=== PATIENT | female | born 1950 | race African-American/Black ===

== ENCOUNTER 2016-11-19 09:03 | Inpatient (IN) | payer MEDICARE ==
--- NOTE | ~2016-11-19 | CN ---
Consultation Report [facility] [address] [place]. [address] NAME: JENISE KHANNA : 50 STATUS : ADM IN PAT#: [id number] AGE: 66 ADM/REG DATE : 11/19/16 MR#: [id number] REPORT SERV DATE: 11/22/16 DICTATED BY: JOSHUA TRACY DATE: 11/19/16 REPORT STATUS : Draft TRANSCRIBED BY: MODL DATE: 11/19/16 CONSULTATION DATE OF CONSULTATION: 11/19/2016 REASON FOR CONSULTATION: Chronic kidney disease with admission for GI bleed. HISTORY OF PRESENT ILLNESS: A very pleasant 66-year-old, female patient, followed chronically in our office by Dr. Salvatore Jameson. She was recently seen in our office on 11/16/2016 with a creatinine at that point of 2.31 with a known baseline of 2.2 to 2.5. She has had recurrent difficulty with GI bleed and reports again to [facility] with a complaint of bright red blood per rectum. She has brought with her son who provides some level of assistance and care for her. Last available hemoglobin in our office on 11/16/2016 was at 10.4 and has dropped to 9.5 here. She is awake and alert, lying in bed during the evaluation this afternoon. Denies current chest pain. No nausea, vomiting, or diarrhea. PAST MEDICAL HISTORY: Positive for chronic kidney disease with baseline creatinine of 2.2 to 2.5, followed by Dr. Salvatore Jameson as listed above. Remainder of her history is positive for recurrent GI bleed, hypertension with previous ARB usage, rheumatoid arthritis on chronic steroids, history of paroxysmal atrial fibrillation without chronic anticoagulation with GI bleed, perforated GI ulcer with GI bleed since 04/2010, history of CVA with mild dysphagia, hyperlipidemia, [id number] diabetes mellitus with metformin usage, history of ventral hernia repairs in 10/2013, echocardiogram in 04/2010 showing EF of 65%, history also positive for small-bowel AVMs, chronic kidney disease, as well as acute blood loss, CVA x2 with continued antiplatelet therapy. REVIEW OF SYSTEMS: Review of systems is completed. Please see HPI for pertinent details. SOCIAL HISTORY: No ETOH. No illicit drugs. No tobacco. Lives here locally and does receive some level of care and assistance from her son, who is employed with the [employer]. ALLERGIES ON ENTRY: She lists no known allergies active. ACTIVE MEDICATIONS: Include amiodarone 200 mg p.o. daily, Norvasc 10 mg p.o. daily, Lipitor 20 mg p.o. q.h.s., Plavix 75 mg p.o. daily, vitamin B12 1000 mcg p.o. daily, Enbrel 25 mg subcu on Tuesdays, folic acid 1 mg daily, hydralazine 50 mg p.o. q.8, metoprolol 25 mg p.o. daily, Protonix 40 mg p.o. daily, Klor-Con 10 mEq p.o. b.i.d., prednisone 2.5 mg p.o. daily, and torsemide 10 mg p.o. daily. PHYSICAL EXAMINATION: VITAL SIGNS: Blood pressure at 146/78, temperature at 98.6, 96% on room air, and heart rate is 66 beats per minute and regular. Consultation Report [address] [place]. [address] NAME: JENISE KHANNA : 50 STATUS : ADM IN PAT#: [id number] AGE: 66 ADM/REG DATE : 11/19/16 MR#: [id number] REPORT SERV DATE: 11/22/16 DICTATED BY: JOSHUA TRACY DATE: 11/19/16 REPORT STATUS : Draft TRANSCRIBED BY: RADHA DATE: 11/19/16 GENERAL: She is awake, alert, oriented x3, in no acute distress. HEENT: Normocephalic, atraumatic. Normal ocular movement. No scleral icterus. No conjunctival pallor is appreciated. NECK: Supple. No thyromegaly. No JVD or mass. CHEST: Shows positive S1 and S2. No rubs or gallops. LUNGS: Diminished but clear to auscultation throughout. Normal expansion effort bilaterally. GASTROINTESTINAL: Shows positive bowel sounds in all four quadrants. No appreciable mass or tenderness. GENITOURINARY: Deferred. EXTREMITIES: Show positive pulses to all four extremities. No clubbing, cyanosis, or edema. NEUROLOGIC: She is grossly intact and nonfocal. She does have a previous deficits as noted from previous CVA with some level of expressive aphasia. She appears to be of appropriate mood and affect. SKIN: Warm, dry, and intact visualized surfaces. No rash, lesions, or ecchymosis. LABORATORY DATA: Pertinent laboratories and imaging to this evaluation. Last available H and H shows a hemoglobin of 9.0, hematocrit 28.3. Comprehensive metabolic panel; sodium 145, potassium 3.1, chloride 109, CO2 of 22, BUN 30, creatinine 2.63, reflected GFR at 21 mL/minute, glucose of 181. Calcium 8.4, total protein 7.6, albumin 3.0, globulin 4.6, alkaline phos 91, ALT and AST 21 and 27. Previous CBC: White blood cell count 6.7, RBC 3.32, hemoglobin 9.5, hematocrit 29.3, and platelets at 228. IMPRESSION AND PLAN: This is a chronic kidney disease stage 4. The patient's baseline creatinine is 2.2 to 2.5, followed by Dr. Salvatore nixon in our office with last creatinine at 2.31 on 11/16/2016, now reporting to [facility] with recurrence of probable gastrointestinal bleed with complaint of bright red blood per rectum. Creatinine is at 2.63 on entry which is just outside of her normal baseline. We will stop her torsemide, and I believe, she is going to be infused with IV fluids, certainly may receive packed red blood cells. The patient has been placed on serial H and H and will be infused per parameters provided by the hospitalist service. Her Eliquis has been stopped, and she will be evaluated by GI Services. Would avoid AYAKA inhibitors as well as ARBs given her current level of renal dysfunction. Defer to others involved in her care regarding re- initiation of antiplatelet therapy post completion of GI workup. Further modification of treatment plan may be made based on clinical presentation, patient laboratory results, further consultation with renal attending. Thank you for consultation. We are glad to follow. DICTATED BY: Erick Morales NP JR/RADHA Consultation Report [facility] [address] [place] [address] NAME: JENISE KHANNA : 50 STATUS : ADM IN [facility]#: [id number] AGE: 66 ADM/REG DATE : 11/19/16 MR#: [id number] REPORT SERV DATE: 11/22/16 DICTATED BY: JOSHUA TRACY DATE: 11/19/16 REPORT STATUS : Draft TRANSCRIBED BY: RADHA DATE: 11/19/16 Joshua Tracy M.D. / [id number] CC: MD Zohra Kim M.D.
--- NOTE | ~2016-11-19 | HP ---
History And Physical [facility] [address] [place]. [address] NAME: JENISE KHANNA : 50 STATUS : ADM IN PAT#: [id number] AGE: 66 ADM/REG DATE : 11/19/16 MR#: [id number] REPORT SERV DATE: 11/19/16 DICTATED BY: SUYAPA WOMACK DATE: 11/19/16 REPORT STATUS : Draft TRANSCRIBED BY: MODL DATE: 11/19/16 DATE OF ADMISSION: 11/19/2016 EXAMINING PHYSICIAN: Suyapa Womack M.D. REASON FOR ADMISSION: Lower GI bleeding. HISTORY OF PRESENT ILLNESS: This is a 66-year-old black female, who has had a known history of GI bleeding in the past. She had iron deficiency anemia, was given five infusions of iron ordered by Dr. Salvatore Jameson in the last year. She had AV malformation identified by Dr. Dominguez Crowley, and was sent to [facility] for evaluation. She was seen at [facility] and had identification of the AVM, but no intervention was undertaken. This is the first GI bleed since she was seen at [facility] in 2014. She has recently begun walking again after her strokes. She has been rehabilitated at [facility] and [facility] both, and had spent some time in the fpc. She did walk with a walker around a drug store with her shopping that was an unusual activity for her; however, she does not have any hemorrhoids or other problems with that. She noticed bright red blood per rectum. She continues to take her Plavix because of her previous stroke. She has some residual dysarthria from previous strokes, but otherwise was able to give history. says she does have some expressive aphasia. She was examined in the emergency room by Dr. Tanmay Olivo, and now is admitted for GI bleeding to monitor serial hemoglobin and hematocrit transfuse if necessary, and consider endoscopy. Dr. Crowley, her travelers' aid worker is being consulted. Her primary care physician had been Dr. Zohra Rollins in [place]. PAST MEDICAL HISTORY: She has had two strokes in the past with some residual dysarthria. She has recovered, for the most part, to be able to walk. She does not have weakness that lateralizes at this time she says. She has a history of gallbladder surgery, Dr. Michael Doll. History of diverticulitis surgery, Dr. Michael Doll did as well. She did have a bowel obstruction in October 2013. Ventral hernia was repaired. Her creatinine has been elevated, though she still takes metformin by her 's report, she uses it in a p.r.n. fashion. HOME MEDICATIONS: Include the following: Amiodarone 200 mg p.o. daily, amlodipine 10 mg p.o. daily, atorvastatin 20 mg p.o. at bedtime, Plavix 75 mg p.o. daily, vitamin B12 a 1000 mcg p.o. daily, Enbrel injection 25 mg subcu on Tuesdays, folic acid 1 mg p.o. daily, hydralazine 50 mg p.o. q.8 hours, metoprolol tartrate 25 mg p.o. daily, Protonix 40 mg p.o. daily, potassium chloride 10 mEq p.o. b.i.d., prednisone 2.5 mg p.o. daily, and torsemide 10 mg p.o. daily. ALLERGIES: NONE ARE KNOWN. SOCIAL HISTORY: She is . Lives with her . She has been since 1970. History And Physical [address] [address] NAME: JENISE KHANNA : 50 STATUS : ADM IN [facility]#: [id number] AGE: 66 ADM/REG DATE : 11/19/16 MR#: [id number] REPORT SERV DATE: 11/19/16 DICTATED BY: SUYAPA WOMACK DATE: 11/19/16 REPORT STATUS : Draft TRANSCRIBED BY: RADHA DATE: 11/19/16 has retired from the [employer]. 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 She lives in [facility] and goes to [facility] where her and his family have been members for three to four generations. She has two sons who are alive and well. Younger son is 6 feet 4 inches and weighs 390 pounds. FAMILY HISTORY: She had four brothers, one sister. Sister of cancer. Mother of cancer. Father of unknown causes. REVIEW OF SYSTEMS: She denies any chest pain. No anal pain. No abdominal pain. No melena. No hematemesis. She has only has bright red blood hematochezia. She has had no hematuria. No fever, chills, night sweats, chest pain, shortness of breath, fits, seizures, convulsions, unilateral weakness, nausea, vomiting, or diarrhea. The remainder of the review of systems is negative. PHYSICAL EXAMINATION: GENERAL: Lightly complected black female, in no acute distress. VITAL SIGNS: Blood pressure initially was 134/77, heart rate of 73, respiratory rate 18, afebrile. HEENT: EOMI. Sclerae clear. Conjunctivae pink. NECK: No bruit without any JVD. CHEST: Clear to A and P. HEART: Regular S1, S2 without murmur, gallop, or click. ABDOMEN: Grossly obese. Nontender. Bowel sounds are positive. No HSM. EXTREMITIES: Have 2+ pitting edema at the shins bilaterally. Distal pulses are palpable dorsalis pedis and posterior tibial, and equally. NEUROLOGIC: She has hyperreflexia, the left knee jerk. Architectural Engineering Teacher is equal and symmetric bilaterally. Coordination appears to be intact. She has no tremor. She is dysarthric. Speech is not smooth. Sensory is symmetric and equal neurologically bilaterally. SKIN: Without rash, ecchymosis, or bruising. LYMPHATICS: There is no adenopathy palpable. PSYCHIATRIC: She is oriented to person, place, and time. Her speech is limited, though appears to be goal directed and appropriate. LABORATORY: Type and screen for O positive blood. Her creatinine is 2.63,with a potassium of 3.1, sodium 145. Her CO2 was 22, glucose 181, calcium 8.4, protein 7.6, and albumin 3.0. Liver tests were normal. Hemoglobin 9.5, hematocrit 29.3, platelet count 228, and white count was 6.7. Her INR is 1.2. ASSESSMENT: 1. Lower gastrointestinal bleeding. Bright red blood per rectum. Her main problem before History And Physical [address] [place]. [address] NAME: JENISE KHANNA : 50 STATUS : ADM IN [facility]#: [id number] AGE: 66 ADM/REG DATE : 11/19/16 MR#: [id number] REPORT SERV DATE: 11/19/16 DICTATED BY: SUYAPA WOMACK. DATE: 11/19/16 REPORT STATUS : Draft TRANSCRIBED BY: MODL DATE: 11/19/16 had been AV malformations of the small intestines. She was seen at [facility] by Dr. Leal, but no intervention was undertaken. This is back in 2014. This is the first gastrointestinal bleed since 2014 that she has had. She is on Plavix and needs that because of her recurrence of strokes. 2. Chronic kidney disease. Stage IV with an estimated creatinine clearance of about 20 mL a minute. 3. Anemia, has been chronic. She has gotten her iron deficiency corrected with IV iron by Dr. Jameson recently. Present MCV is 88. 4. Dysarthria from previous strokes. 5. Left hyperreflexia without weakness on the left side indicating residual from previous stroke. 6. Hypertension. 7. Diabetes type 2. Her still relates that she is taking metformin intermittently at home in spite of the elevated creatinine. We will inform Dr. Salvatore Jameson and Dr. Rollins. 8. Rheumatoid arthritis. Seen by Dr. Isaura Garcia. 9. History of cerebrovascular accident in 2008 with some residual requiring her to retire at that time. 10.History of bleeding from AV malformations of the small intestine with melena on previous admissions. PLAN: We will consult Dr. Crowely for consideration for endoscopies. This the first bleeding problem she has had since 2014. We will follow serial hemoglobin and hematocrit evaluations, transfuse if needed. DB/MODL Suyapa Womack M.D. / [id number] CC: MD Zohra Kim M.D. Robert Barnett III, M.D. Nathan Chamberlain, M.D. Matthew Bagamery, M.D. Isaura Garcia M.D.
--- NOTE | ~2016-11-19 | IDS ---
Interim Discharge Summary [facility] [address] [place]. [address] NAME: JENISE KHANNA : 50 STATUS : ADM IN PAT#: [id number] AGE: 66 ADM/REG DATE : 11/19/16 MR#: [id number] REPORT SERV DATE: 11/25/16 DICTATED BY: DATE: REPORT STATUS : Draft TRANSCRIBED BY: MODL DATE: 11/24/16 ADMISSION DATE: 11/19/2016 DISCHARGE DATE: ATTENDING PHYSICIANS: Dr. Dario Nieto and Dr. Vishnu Liu. CONSULTANTS: Have included Dr. Dominguez Crowley of Gastroenterology and Mackenzie Wong, of Nephrology - now signed off. CURRENT DIAGNOSES: 1. Acute blood loss anemia - status post 5 units of packed red blood cells this admission, with 1 unit given on each of 11/20/2016, 11/21/2016, 11/22/2016, 11/23/2016, and 11/24/2016. 2. Lower GI bleed-diverticular per tagged red blood cell scan on 11/22/2016. 3. Melena - suspect evacuation of old bleed and not new bleeding. Tagged red blood cell scan on 11/23/2016 negative. 4. History of GI AV malformations - on PPI and Sandostatin currently. 5. History of past cerebrovascular accidents - on outpatient Plavix - held currently. 6. Hypertension - controlled. 7. Hyperlipidemia. 8. History of paroxysmal atrial fibrillation. 9. Rheumatoid arthritis on disease modifying therapies. 10.Chronic kidney disease, stage 3-4 - stable with baseline creatinine between 2.3 and 2.6. IMAGING AND DIAGNOSTICS: Include: 1. Tagged red blood cell scan on 11/22/2016 showing active GI bleeding involving the left colon, likely originating near the splenic flexure. 2. Tagged red blood cell scan 11/23/2016 showing no scintigraphic evidence of active GI bleeding at this time. PERTINENT LABS: Hemoglobin values ranging from 7 to 8.4, normal white count, normal platelets, normal INR. Creatinine values ranging from 2.3 to 2.6, normal liver enzymes. BRIEF HISTORY: For full details, please see the previously dictated history of present illness by Emiliano Fatima. This is a 66-year-old female with known history of GI AVMs, previously evaluated and treated at [facility] in 2014. The patient had not been experiencing any GI bleeding since then, but had been treated with IV iron infusions for iron deficiency anemia. She presented to the [facility] Emergency Department with complaint of bright red blood per rectum with drop in hemoglobin from previously known value of 10.4 to as low as 7.1. The patient denied any nausea, vomiting, hematemesis, abdominal pain, diarrhea, or recent melena. She was admitted to the Hospitalist Service for evidence of active blood loss. HOSPITAL COURSE: The patient was admitted on 11/19/2016, placed on IV fluids, with serial hemoglobin and hematocrit values obtained. Her hemoglobin declined overnight on 11/19/2016, Interim Discharge Summary [facility] [address] [place]. [address] NAME: JENISE KHANNA : 50 STATUS : ADM IN [facility]#: [id number] AGE: 66 ADM/REG DATE : 11/19/16 MR#: [id number] REPORT SERV DATE: 11/25/16 DICTATED BY: DATE: REPORT STATUS : Draft TRANSCRIBED BY: MODL DATE: 11/24/16 and she required her first unit of packed red blood cells on 11/20/2016. Her Plavix was held at admission, Dr. Crowley was consulted, and recommended IV Sandostatin for possible diverticular bleed versus AV malformations. The patient continued to experience melena and decline in hemoglobin on 11/21/2016 with four bloody bowel movements. Gastroenterology recommended tagged red blood cell scan be performed, and this was done on 11/22/2016, suggestive of a diverticular bleed. Return Clerk was consulted in the event that arteriogram was planned, but the patient ended up declining this procedure. The patient was managed symptomatically on the afternoon of 11/22/2016, and was doing well until early on the morning of 11/23/2016 when she developed another four episodes of melena. She was hemodynamically stable but did demonstrate decline in hemoglobin from 8.4 to 7.5 and was transfused additional packed red blood cells. Since the morning of 11/23/2016, her melena has slowed significantly. A repeat tagged red blood cell scan done on the afternoon of 11/23/2016 did not demonstrate any active bleeding, thus her ongoing melena is felt to be evacuation of prior blood. Gastroenterology recommended decreasing her Sandostatin and continuing serial hemoglobin and hematocrit values with transfusions for any hemoglobin less than 7.5, thus she received an additional unit of packed red blood cells on 11/24/2016 for a hemoglobin of 7.4. Her Plavix remains on hold. This has been discussed with Neurology who said there is no other reasonable stroke prophylaxis at present. It needs to be discussed further with Gastroenterology and the patient whether the risk of being on Plavix exceeds the benefit, or vice versa. The patient's other chronic medical problems including rheumatoid arthritis, hypertension, hyperlipidemia, history of atrial fibrillation, chronic kidney disease have all been stable this admission without any changes in home medications with the exception of Demadex, which was initially held at admission, but restarted on 11/24/2016 when it was clear that creatinine was at baseline and no contrast dye is planned. Plavix is on hold as mentioned above. DISPOSITION: The patient remains hospitalized, to be followed by a colleague starting tomorrow. Would anticipate discharge within the next 24 to 48 hours, when hemoglobin has been stable for more than 24 hours with no evidence of recurrent melena. Again, discussions about re-initiation of Plavix, and the appropriate time frame for such will need to occur as well. CONCHITA/RADHA Vishnu Liu M.D. Interim Discharge Summary [address] [address] NAME: JENISE KHANNA : 50 STATUS : ADM IN [facility]#: [id number] AGE: 66 ADM/REG DATE : 11/19/16 MR#: [id number] REPORT SERV DATE: 11/25/16 DICTATED BY: DATE: REPORT STATUS : Draft TRANSCRIBED BY: MODL DATE: 11/24/16 / [id number] CC: Raiza Abraham M.D. Matthew Bagamery, M.D.
--- NOTE | ~2016-11-19 | DS ---
Discharge Summary [facility] [address] [place]. [address] NAME: JENISE KHANNA : 50 STATUS : DIS IN PAT#: [id number] AGE: 66 ADM/REG DATE : 11/19/16 MR#: [id number] REPORT SERV DATE: 11/26/16 DICTATED BY: TAD JIMENEZ DATE: 11/25/16 REPORT STATUS : Draft TRANSCRIBED BY: MODL DATE: 11/25/16 ADMISSION DATE: 11/19/2016 DISCHARGE DATE: 11/25/2016 DISCHARGE DIAGNOSES: 1. Acute blood loss anemia, status post 5 units of packed red blood cells on this admission. Lower gastrointestinal bleed, most likely diverticular as per tagged red cell scan done on 11/22/2016, repeat scan negative. 2. Melena, suspect evacuation of all blood. 3. History of a GI arteriovenous malformations. On proton pump inhibitor. Was given Sandostatin during this hospitalization. 4. History of cerebrovascular accident. On outpatient Plavix, currently held until Tuesday after discharge. 5. Hypertension, controlled. 6. Hyperlipidemia, history of paroxysmal atrial fibrillation, currently on amiodarone with sinus rhythm. 7. Rheumatoid arthritis, currently on disease modifying therapy. 8. Chronic kidney disease stage 3 to 4 with creatinine back to baseline. CONSULTANTS DURING THIS HOSPITALIZATION: Dr. Dominguez Crowley of Gastroenterology. INVASIVE PROCEDURES DONE DURING THIS HOSPITALIZATION: None. IMAGING: Please refer to interim summary dictated by Dr. Vishnu Liu. BRIEF HISTORY OF PRESENT ILLNESS: The patient is a 66-year-old female, with known GI AVMs, presented with melena, iron-deficiency anemia, so she was admitted. For detailed history and physical exam, please see note dictated by Dr. Emiliano Fatima on 11/19/2016. HOSPITAL COURSE: After being admitted to the hospital, this patient was cared for by Dr. Dario Nieto and Dr. Vishnu Liu. Please refer to interim summary dictated by Dr. Liu on 11/24/2016. I took over this patient's care on 11/25/2016. This patient was doing relatively worse. She says her melena has resolved. She is tolerating a diet after Carline okayed her discharge and recommended she follow up in the outpatient setting. I have told her not to take her Plavix for about three to four days until she completely feels better and then resume in the outpatient setting. She remained stable, otherwise medically and is being discharged in stable condition. DISCHARGE DISPOSITION: Home. DISCHARGE ACTIVITY: As tolerated. DISCHARGE DIET: 1800-calorie [place] [employer] diet. DISCHARGE MEDICATIONS: Amlodipine 10 mg once daily, Lipitor 20 mg once daily, amiodarone 200 Discharge Summary [address] [address] NAME: JENISE KHANNA : 50 STATUS : DIS IN PAT#: [id number] AGE: 66 ADM/REG DATE : 11/19/16 MR#: [id number] REPORT SERV DATE: 11/26/16 DICTATED BY: TAD JIMENEZ DATE: 11/25/16 REPORT STATUS : Draft TRANSCRIBED BY: RADHA DATE: 11/25/16 mg once daily, vitamin B12 of 1000 mcg once daily, folic acid 1 mg once daily, Lopressor 25 mg once daily, Protonix 40 mg once daily, potassium 10 mEq twice daily, Demadex 10 mg once daily, hydralazine 50 mg three times daily, prednisone 2.5 mg once daily, Plavix 75 mg once daily to be resumed on 11/29/2016, Amaryl 50 mg subcu every Tuesday. DISCHARGE FOLLOWUP: With Dr. Zohra Rollins in one week for a repeat H and H with Dr. Dominguez Crowley in two weeks as directed by him. More than 30 minutes spent planning this patient's discharge, reconciling medications, writing prescriptions, reconciling medications, discussing hospital care, and followup with the patient and documenting this discharge. PAULA/RADHA Tad Jimenez M.D. / [id number] CC: Raiza Abraham M.D. Matthew Bagamery, M.D.
[2016-11-19 08:25] LABS: BASOPHILS 0.1 %; BASOPHILS ABSOLUTE 0.01 10/3/uL (0.0-0.16); EOSINOPHILS 2.1 %; EOSINOPHILS ABSOLUTE 0.14 10/3/uL (0.0-0.53); HEMATOCRIT 29.3 % (36.0-48.0); HEMOGLOBIN 9.5 g/dL (12.0-16.0); IMMATURE GRANULOCYTES 0.1 %; IMMATURE GRANULOCYTES ABSOLUTE 0.01 10/3/uL (0.0-0.11); LYMPHOCYTES 21.1 %; LYMPHOCYTES ABSOLUTE 1.42 10/3/uL (0.67-4.30); MEAN CORPUS HGB CONC 32.4 g/dL (32.0-36.0); MEAN CORPUSCULAR HEMOGLOB 28.6 pg (26.0-34.0); MEAN CORPUSCULAR VOLUME 88.3 fL (80-100); MEAN PLATELET VOLUME 9.9 fL (9.2-13.0); MONOCYTES 5.6 %; MONOCYTES ABSOLUTE 0.38 10/3/uL (0.21-1.20); NEUTROPHILS ABSOLUTE 4.77 10/3/uL (2.02-8.40); PLATELET COUNT 228 10/3/uL (150-400); RED CELL COUNT 3.32 10/6/uL (4.0-5.6); WHITE BLOOD CELLS 6.7 10/3/uL (4.5-10.5)
[2016-11-19 08:26] LABS: MANUAL DIFF NO %
[2016-11-19 08:33] LABS: INTERNATIONAL NORMAL RATI 1.2 UNITS (-); PARTIAL THROMBO TIME 24.1 SEC (22.5-37.2); PROTIME (NOT ORD) 14.6 SEC (12.0-14.5)
[2016-11-19 08:40] LABS: CALCIUM, SERUM 8.4 MG/DL (8.5-10.4); CHLORIDE, SERUM 109 MMOL/L (96-112); CREATININE 2.63 MG/DL (0.55-1.02); GFR AFRICAN AMERICAN 21 ML/MIN (>=60); GFR NON AFRICAN AMERICAN 18 ML/MIN (>=60); SGOT(AST) 27 U/L (5-40); SGPT(ALT) 21 U/L (5-65); SODIUM, SERUM 145 MMOL/L (135-148); TOTAL PROTEIN 7.6 G/DL (6.0-8.5)
[2016-11-19 08:41] LABS: A/G RATIO 0.7 (0.7-1.9); ALKALINE PHOSPHATASE 91 U/L (45-117); BUN (BLOOD UREA NITROGEN) 30 MG/DL (6-23); CO2 (CARBON DIOXIDE) 22 MMOL/L (24-34); GLOBULIN 4.6 G/DL (2.5-4.1); GLUCOSE, SERUM 181 MG/DL (60-99); POTASSIUM, SERUM 3.1 MMOL/L (3.5-5.3); TOTAL BILIRUBIN 0.7 MG/DL (0-1.2)
[~2016-11-19 09:03] MED LIST: APRES50 PO; ASAB PO; AZOR1 TA3 PO; B121000P IM; BENICAR40 PO; CAPOTEN100 MG PO; CARD120 PO; CARTIA XT120 MG/24 PO; CATAPRES3 TOP; COLCRYS0.6 MG PO; CORDARONE PO; DEMA10T PO; DEMA20 PO; DYAZIDE1 CAP PO; EZFE 200200 MG PO; FERRETTS325 MG PO; FERROUS SULF325 M1 PO; FOLIC PO; GLUCOPHXR PO; GLUCPH PO; HALF81 PO; IMDUR30 PO; IRON INFUSIONS IV; IRON325 MG PO; IVVIBRA PO; KAON-CL-1010 MEQ PO; KDUR10 PO; KDUR20 PO; KLOR-CON 1010 MEQ PO; KLOR-CON M1010 MEQ PO; L40 PO; LEVAQUIN750 MG PO; LIPITOR40 PO; LOP50 PO; MICRO-K10 MEQ PO; MTX2.5 PO; NASCOBAL NAS; NORCO1 TA1 PO; NORV10 PO; NORV5 PO; PLAVIX PO; PR12.5 PO; PREDNISONE2.5 MG PO; PRILO PO; PRIN20 PO; PROTONIX PO; STARLIX120 PO; STARLIX60 PO; SULFAMETHOXAZOLE PO; T PO; ULTRAM50 PO; VICODINTAB PO; VITD PO; [UNRECOGNIZED DRUG - CODE] IV
[2016-11-19] MEDS ORDERED: KLOR-CON 1010 MEQ PO (09:11)
[2016-11-19] MEDS ORDERED: LOP25 PO (09:12)
[2016-11-19] MEDS ORDERED: FOLIC PO (09:12)
[2016-11-19] MEDS ORDERED: LIPITOR20 PO (09:12)
[2016-11-19] MEDS ORDERED: PLAVIX PO (09:12)
[2016-11-19] MEDS ORDERED: NORV10 PO (09:12)
[2016-11-19] MEDS ORDERED: PROTONIX PO (09:12)
[2016-11-19] MEDS ORDERED: APRES50 PO (09:13)
[2016-11-19] MEDS ORDERED: DEMA10T PO (09:13)
[2016-11-19] MEDS ORDERED: PREDNISONE2.5 MG PO (09:13)
[2016-11-19] MEDS ORDERED: ENBREL25 MG SC (09:13)
[2016-11-19] MEDS ORDERED: CORDARONE PO (09:13)
[2016-11-19] MEDS ORDERED: CYANO1000T PO (09:14)
[2016-11-19 13:36] LABS: HEMATOCRIT 28.3 % (36.0-48.0)
[2016-11-19 19:29] LABS: HEMATOCRIT 27.7 % (36.0-48.0); HEMOGLOBIN 8.9 g/dL (12.0-16.0)
[2016-11-20 03:44] LABS: BASOPHILS 0.1 %; BASOPHILS ABSOLUTE 0.01 10/3/uL (0.0-0.16); EOSINOPHILS 0.7 %; EOSINOPHILS ABSOLUTE 0.05 10/3/uL (0.0-0.53); HEMATOCRIT 25.4 % (36.0-48.0); HEMOGLOBIN 8.2 g/dL (12.0-16.0); IMMATURE GRANULOCYTES 0.1 %; IMMATURE GRANULOCYTES ABSOLUTE 0.01 10/3/uL (0.0-0.11); LYMPHOCYTES 16.5 %; LYMPHOCYTES ABSOLUTE 1.25 10/3/uL (0.67-4.30); MEAN CORPUS HGB CONC 32.3 g/dL (32.0-36.0); MEAN CORPUSCULAR HEMOGLOB 30.3 pg (26.0-34.0); MEAN PLATELET VOLUME 9.6 fL (9.2-13.0); MONOCYTES 5.1 %; MONOCYTES ABSOLUTE 0.39 10/3/uL (0.21-1.20); NEUTROPHILS 77.5 %; NEUTROPHILS ABSOLUTE 5.87 10/3/uL (2.02-8.40); PLATELET COUNT 223 10/3/uL (150-400); RBC DISTRIBUTION WIDTH 17.5 % (12.0-16.0); RED CELL COUNT 2.71 10/6/uL (4.0-5.6); WHITE BLOOD CELLS 7.6 10/3/uL (4.5-10.5)
[2016-11-20 03:49] LABS: ALBUMIN 2.8 G/DL (3.5-5.0); CALCIUM, SERUM 8.3 MG/DL (8.5-10.4); CHLORIDE, SERUM 114 MMOL/L (96-112); CO2 (CARBON DIOXIDE) 20 MMOL/L (24-34); CREATININE 2.53 MG/DL (0.55-1.02); GFR AFRICAN AMERICAN 22 ML/MIN (>=60); GFR NON AFRICAN AMERICAN 19 ML/MIN (>=60); GLUCOSE, SERUM 168 MG/DL (60-99); PHOSPHORUS, SERUM 3.3 MG/DL (2.5-4.5); SODIUM, SERUM 146 MMOL/L (135-148)
[2016-11-20 03:55] LABS: MANUAL DIFF NO %; MEAN CORPUSCULAR VOLUME 93.7 fL (80-100)
[2016-11-20 04:03] LABS: BUN (BLOOD UREA NITROGEN) 35 MG/DL (6-23); POTASSIUM, SERUM 4.3 MMOL/L (3.5-5.3)
[2016-11-20 11:57] LABS: HEMOGLOBIN 7.1 g/dL (12.0-16.0)
[2016-11-20 11:58] LABS: HEMATOCRIT 22.6 % (36.0-48.0)
[2016-11-21 00:04] LABS: HEMOGLOBIN 8.1 g/dL (12.0-16.0)
[2016-11-21 09:54] LABS: HEMATOCRIT 23.2 % (36.0-48.0); HEMOGLOBIN 7.6 g/dL (12.0-16.0)
[2016-11-21 16:01] LABS: HEMOGLOBIN 8.4 g/dL (12.0-16.0)
[2016-11-21 21:08] LABS: HEMATOCRIT 23.9 % (36.0-48.0); HEMOGLOBIN 7.9 g/dL (12.0-16.0)
[2016-11-22 06:02] LABS: HEMATOCRIT 26.1 % (36.0-48.0); HEMOGLOBIN 8.7 g/dL (12.0-16.0)
[2016-11-22 14:07] LABS: HEMATOCRIT 27.7 % (36.0-48.0); HEMOGLOBIN 9.2 g/dL (12.0-16.0)
[2016-11-22 17:21] LABS: ALBUMIN 2.9 G/DL (3.5-5.0); CALCIUM, SERUM 8.3 MG/DL (8.5-10.4); CHLORIDE, SERUM 115 MMOL/L (96-112); CO2 (CARBON DIOXIDE) 20 MMOL/L (24-34); CREATININE 2.61 MG/DL (0.55-1.02); GFR AFRICAN AMERICAN 21 ML/MIN (>=60); GFR NON AFRICAN AMERICAN 18 ML/MIN (>=60); GLUCOSE, SERUM 137 MG/DL (60-99); PHOSPHORUS, SERUM 2.7 MG/DL (2.5-4.5); POTASSIUM, SERUM 4.1 MMOL/L (3.5-5.3); SODIUM, SERUM 145 MMOL/L (135-148)
[2016-11-22 17:22] LABS: BUN (BLOOD UREA NITROGEN) 27 MG/DL (6-23)
[2016-11-22 22:14] LABS: HEMATOCRIT 25.5 % (36.0-48.0); HEMOGLOBIN 8.4 g/dL (12.0-16.0)
[2016-11-23 06:34] LABS: BASOPHILS 0.1 %; BASOPHILS ABSOLUTE 0.01 10/3/uL (0.0-0.16); EOSINOPHILS 0.9 %; EOSINOPHILS ABSOLUTE 0.08 10/3/uL (0.0-0.53); HEMOGLOBIN 7.5 g/dL (12.0-16.0); IMMATURE GRANULOCYTES 0.4 %; IMMATURE GRANULOCYTES ABSOLUTE 0.04 10/3/uL (0.0-0.11); LYMPHOCYTES ABSOLUTE 2.24 10/3/uL (0.67-4.30); MEAN CORPUS HGB CONC 32.6 g/dL (32.0-36.0); MEAN CORPUSCULAR HEMOGLOB 30.2 pg (26.0-34.0); MEAN CORPUSCULAR VOLUME 92.7 fL (80-100); MEAN PLATELET VOLUME 9.5 fL (9.2-13.0); MONOCYTES 4.5 %; MONOCYTES ABSOLUTE 0.42 10/3/uL (0.21-1.20); NEUTROPHILS 70.1 %; NEUTROPHILS ABSOLUTE 6.53 10/3/uL (2.02-8.40); PLATELET COUNT 233 10/3/uL (150-400); RBC DISTRIBUTION WIDTH 16.6 % (12.0-16.0); RED CELL COUNT 2.48 10/6/uL (4.0-5.6); WHITE BLOOD CELLS 9.3 10/3/uL (4.5-10.5)
[2016-11-23 06:36] LABS: MANUAL DIFF NO %
[2016-11-23 06:49] LABS: ALBUMIN 2.7 G/DL (3.5-5.0); BUN (BLOOD UREA NITROGEN) 25 MG/DL (6-23); CHLORIDE, SERUM 116 MMOL/L (96-112); CO2 (CARBON DIOXIDE) 18 MMOL/L (24-34); GFR AFRICAN AMERICAN 24 ML/MIN (>=60); GFR NON AFRICAN AMERICAN 20 ML/MIN (>=60); GLUCOSE, SERUM 147 MG/DL (60-99); POTASSIUM, SERUM 4.4 MMOL/L (3.5-5.3); SGOT(AST) 35 U/L (5-40); SGPT(ALT) 22 U/L (5-65); SODIUM, SERUM 145 MMOL/L (135-148); TOTAL BILIRUBIN 0.4 MG/DL (0-1.2); TOTAL PROTEIN 6.2 G/DL (6.0-8.5)
[2016-11-23 06:52] LABS: A/G RATIO 0.8 (0.7-1.9); ALKALINE PHOSPHATASE 75 U/L (45-117); GLOBULIN 3.5 G/DL (2.5-4.1)
[2016-11-23 16:08] LABS: HEMATOCRIT 24.5 % (36.0-48.0); HEMOGLOBIN 8.2 g/dL (12.0-16.0)
[2016-11-23 20:47] LABS: HEMATOCRIT 23.6 % (36.0-48.0); HEMOGLOBIN 7.8 g/dL (12.0-16.0)
[2016-11-24 01:36] LABS: HEMATOCRIT 22.9 % (36.0-48.0); HEMOGLOBIN 7.5 g/dL (12.0-16.0)
[2016-11-24 05:33] LABS: BASOPHILS 0.1 %; BASOPHILS ABSOLUTE 0.01 10/3/uL (0.0-0.16); EOSINOPHILS 4.1 %; EOSINOPHILS ABSOLUTE 0.31 10/3/uL (0.0-0.53); HEMATOCRIT 22.7 % (36.0-48.0); HEMOGLOBIN 7.4 g/dL (12.0-16.0); IMMATURE GRANULOCYTES 0.4 %; IMMATURE GRANULOCYTES ABSOLUTE 0.03 10/3/uL (0.0-0.11); LYMPHOCYTES 26.3 %; MEAN CORPUS HGB CONC 32.6 g/dL (32.0-36.0); MEAN CORPUSCULAR HEMOGLOB 30.1 pg (26.0-34.0); MEAN CORPUSCULAR VOLUME 92.3 fL (80-100); MEAN PLATELET VOLUME 9.3 fL (9.2-13.0); MONOCYTES 6.7 %; MONOCYTES ABSOLUTE 0.51 10/3/uL (0.21-1.20); NEUTROPHILS 62.4 %; NEUTROPHILS ABSOLUTE 4.75 10/3/uL (2.02-8.40); PLATELET COUNT 194 10/3/uL (150-400); RBC DISTRIBUTION WIDTH 17.6 % (12.0-16.0); RED CELL COUNT 2.46 10/6/uL (4.0-5.6); WHITE BLOOD CELLS 7.6 10/3/uL (4.5-10.5)
[2016-11-24 05:37] LABS: MANUAL DIFF NO %
[2016-11-24 05:42] LABS: BUN (BLOOD UREA NITROGEN) 22 MG/DL (6-23); CHLORIDE, SERUM 118 MMOL/L (96-112); CO2 (CARBON DIOXIDE) 20 MMOL/L (24-34); GFR AFRICAN AMERICAN 25 ML/MIN (>=60); GFR NON AFRICAN AMERICAN 21 ML/MIN (>=60); GLUCOSE, SERUM 134 MG/DL (60-99); POTASSIUM, SERUM 4.1 MMOL/L (3.5-5.3); SODIUM, SERUM 147 MMOL/L (135-148)
[2016-11-24 12:46] LABS: HEMATOCRIT 22.8 % (36.0-48.0); HEMOGLOBIN 7.6 g/dL (12.0-16.0)
[2016-11-24 20:50] LABS: HEMOGLOBIN 8.6 g/dL (12.0-16.0)
[2016-11-24 20:51] LABS: HEMATOCRIT 25.5 % (36.0-48.0)
[2016-11-25 06:04] LABS: BASOPHILS 0.1 %; BASOPHILS ABSOLUTE 0.01 10/3/uL (0.0-0.16); EOSINOPHILS 2.9 %; EOSINOPHILS ABSOLUTE 0.23 10/3/uL (0.0-0.53); HEMATOCRIT 24.9 % (36.0-48.0); HEMOGLOBIN 8.2 g/dL (12.0-16.0); IMMATURE GRANULOCYTES 0.5 %; IMMATURE GRANULOCYTES ABSOLUTE 0.04 10/3/uL (0.0-0.11); LYMPHOCYTES 23.6 %; LYMPHOCYTES ABSOLUTE 1.86 10/3/uL (0.67-4.30); MEAN CORPUS HGB CONC 32.9 g/dL (32.0-36.0); MEAN CORPUSCULAR HEMOGLOB 30.5 pg (26.0-34.0); MEAN CORPUSCULAR VOLUME 92.6 fL (80-100); MEAN PLATELET VOLUME 9.4 fL (9.2-13.0); MONOCYTES 7.4 %; MONOCYTES ABSOLUTE 0.58 10/3/uL (0.21-1.20); NEUTROPHILS 65.5 %; NEUTROPHILS ABSOLUTE 5.17 10/3/uL (2.02-8.40); PLATELET COUNT 226 10/3/uL (150-400); RED CELL COUNT 2.69 10/6/uL (4.0-5.6); WHITE BLOOD CELLS 7.9 10/3/uL (4.5-10.5)
[2016-11-25 06:06] LABS: MANUAL DIFF NO %
[2016-11-25 06:19] LABS: BUN (BLOOD UREA NITROGEN) 20 MG/DL (6-23); CALCIUM, SERUM 8.1 MG/DL (8.5-10.4); CHLORIDE, SERUM 115 MMOL/L (96-112); CO2 (CARBON DIOXIDE) 19 MMOL/L (24-34); CREATININE 2.21 MG/DL (0.55-1.02); GFR AFRICAN AMERICAN 26 ML/MIN (>=60); GFR NON AFRICAN AMERICAN 22 ML/MIN (>=60); GLUCOSE, SERUM 131 MG/DL (60-99); POTASSIUM, SERUM 4.1 MMOL/L (3.5-5.3); SODIUM, SERUM 143 MMOL/L (135-148)
[2016-11-25 10:10] LABS: HEMATOCRIT 26.5 % (36.0-48.0); HEMOGLOBIN 8.7 g/dL (12.0-16.0)
== END 2016-11-25 14:57 | disposition home or self-care (01) | DRG 378 ==
LOC: ER 09:03 → 4SO 09:59
PROVIDERS: Emergency Medicine; Hospitalist; Internal Medicine; Internal Medicine Gastroenterology; Nurse Practitioner; Registered Nurse
PROC: 30233N1 Transfusion of Nonautologous Red Blood Cells into Peripheral Vein, Percutaneous Approach (ICD-10-PCS; principal; 2016-11-20)
DX: K57.31 Diverticulosis of large intestine without perforation or abscess with bleeding (principal); D62 Acute posthemorrhagic anemia; N17.9 Acute kidney failure, unspecified; I48.0 Paroxysmal atrial fibrillation; N18.4 Chronic kidney disease, stage 4 (severe); I69.320 Aphasia following cerebral infarction; R29.2 Abnormal reflex; I12.9 Hypertensive chronic kidney disease with stage 1 through stage 4 chronic kidney disease, or unspecified chronic kidney disease; Z23 Encounter for immunization; D50.9 Iron deficiency anemia, unspecified; I69.322 Dysarthria following cerebral infarction; Z79.02 Long term (current) use of antithrombotics/antiplatelets; Z79.84 Long term (current) use of oral hypoglycemic drugs; I69.398 Other sequelae of cerebral infarction; M06.9 Rheumatoid arthritis, unspecified; E78.5 Hyperlipidemia, unspecified; Q27.33 Arteriovenous malformation of digestive system vessel; Z79.52 Long term (current) use of systemic steroids; Z87.11 Personal history of peptic ulcer disease; E87.6 Hypokalemia; E66.9 Obesity, unspecified; Z68.36 Body mass index [BMI] 36.0-36.9, adult
CPT/HCPCS: 36415; 75726; 78278; 80048; 80053; 80069; 82962; 83735; 85014; 85018; 85025; 85610; 85730; 86850; 86900; 86901; 86920; 90662; 93005; 96374; 99285; A9270-GY; A9560; G0008; P9016